=== PATIENT | male | born 1970 | race Caucasian/White ===

== ENCOUNTER 2023-11-04 19:13 | Inpatient (IN) | payer MEDICAID ==
[~2023-11-04] VITALS: Ht 167.6 cm; Wt 87.5 kg
[2023-11-04 19:30] VITALS: BP 159/81; PULSE 107; RESP 16; TEMP 99.1; O2SAT 99
[2023-11-04 19:58] LABS: BASOPHILS % (AUTO) 0.1 % (0.0-2.0); EOSINOPHILS # (AUTO) 0.2 K/uL (0-0.4); EOSINOPHILS % (AUTO) 0.9 % (0.0-4.0); HEMATOCRIT 35.4 % (36-52); HEMOGLOBIN 12.3 g/dL (12.0-18.0); LYMPHOCYTES % (AUTO) 9.8 % (20.5-51.1); MEAN CORPUSCULAR HEMOGLOBIN 33 pg (27-31); MEAN CORPUSCULAR HGB CONC 35 g/dL (33-37); MEAN CORPUSCULAR VOLUME 95.2 fL (80-94); MONOCYTES # (AUTO) 1.6 K/uL (0.8-1.0); MONOCYTES % (AUTO) 8.1 % (1.7-9.3); NEUTROPHILS # (AUTO) 16.1 K/uL (1.8-7.7); NEUTROPHILS % (AUTO) 81.1 % (42.2-75.2); PLATELET COUNT (AUTO) 422 K/uL (140-450); RED BLOOD CELL COUNT(AUTO) 3.72 MIL/uL (4.20-6.10); RED CELL DISTRIBUTION WIDTH 13.1 % (11.6-13.7); WHITE BLOOD COUNT (AUTO) 19.9 K/uL (4.8-10.8)
[2023-11-04 20:17] LABS: BILIRUBIN,URINE NEGATIVE (NEGATIVE); BLOOD, URINE 2+ (NEGATIVE); COLOR,URINE YELLOW (YELLOW); LEUKOCYTE ESTERASE ,URINE NEGATIVE (NEGATIVE); NITRITE, URINE NEGATIVE (NEGATIVE); PROTEIN,URINE 2+ (NEGATIVE); UGLUCOSE 1+ (NEGATIVE); UROBILINOGEN,URINE 0.2 EU/dL (0.2 - 1)
[2023-11-04 20:18] LABS: ANION GAP 12.1 (8-16); CALCIUM 8.1 mg/dL (8.5-10.1); CARBON DIOXIDE 24.3 mmol/L (21-32); CREATININE 1.4 mg/dL (0.6-1.3); POTASSIUM 4.4 mmol/L (3.5-5.1)
[2023-11-04 20:18] LABS: APPEARANCE,URINE SLIGHTLY HAZY (CLEAR)
[2023-11-04 20:20] LABS: BACTERIA,URINE 1+ /HPF (None Seen); MUCUS,URINE None Seen /LPF (None Seen); SQUAMOUS EPITHELIAL CELL,UR 4-10 (MOD) /LPF (0-3 (FEW)); WBC,URINE 0-5 /HPF (0-5)
[2023-11-04] MEDS: VANCOMYCIN 1,000 MG in DEXTROSE 5% 250 ML IV ONE (20:20)
[2023-11-04 20:21] LABS: INR 0.92 (0.8-1.2); PARTIAL THROMBOPLASTIN TIME 29.9 secs (22-35.6); PROTHROMBIN TIME 9.7 secs (10.8-13.4)
[2023-11-04] MEDS: metroNIDAZOLE 500 MG/NS PREMIX 100 ML IV ONE (20:22)
[2023-11-04 20:28] LABS: ALANINE AMINOTRANSFERASE 37 U/L (12-78); ALBUMIN 1.7 g/dL (3.4-5.0); ALKALINE PHOSPHATASE 293 U/L (50-136); ASPARTATE AMINOTRANSFERASE 53 U/L (15-37); BILIRUBIN,DIRECT 0.2 mg/dL (0.0-0.3); CREATINE KINASE, TOTAL 25 U/L (39-308); LACTIC ACID 1.6 mmol/L (0.4-2.0); TOTAL BILIRUBIN 0.4 mg/dL (0.0-1.0); TOTAL PROTEIN, SERUM 8.9 g/dL (6.4-8.2)
[2023-11-04] MEDS ORDERED: CEFEPIME 2,000 MG VIAL IV ONE (20:35)
[2023-11-04] MEDS: NACL 0.9% 2,000 ML IV ONE (20:50)
[2023-11-04] MEDS ORDERED: ATOR40TA PO (20:55)
[2023-11-04] MEDS ORDERED: METF-1139 PO (20:55)
[2023-11-04] MEDS ORDERED: PIOG45TA10 PO (20:55)
[2023-11-04] MEDS ORDERED: AMOX-999 PO (20:55)
[2023-11-04] MEDS ORDERED: CLIN300C2 PO (20:55)
[2023-11-04] MEDS: CEFEPIME 2,000 MG in DEXTROSE 5% 100 ML IV ONE (21:25)
[2023-11-04] MEDS ORDERED: VANCOMYCIN 1,000 MG VIAL ONE (21:49)
[2023-11-04] MEDS: MORPHINE SULFATE 4 MG/ML SYR IVP ONE (22:01)
[2023-11-04] MEDS ORDERED: ONDANSETRON 4 MG/2 ML VIAL IVP PRN (22:10)
[2023-11-04] MEDS ORDERED: DEXTROSE 50% 50 ML SYR IVP PRN (22:10)
[2023-11-04] MEDS: VANCOMYCIN 1GM/DEXT 5% PREMIX 200 ML IV ONE (22:50)
[2023-11-04 23:00] VITALS: PULSE 101; RESP 18; O2SAT 98
[2023-11-04] MEDS: NACL 0.9% 1,000 ML IV SCH (23:51)
[2023-11-04] MEDS: hydrALAZINE 20 MG/ML VIAL IVP PRN (23:52)
[2023-11-05 04:00] VITALS: BP 159/74; PULSE 90; RESP 18; TEMP 98.1; O2SAT 97
[2023-11-05] MEDS: CLINDAMYCIN 900 MG in DEXTROSE 5% 100 ML IV SCH (04:26)
[2023-11-05] MEDS: CLINDAMYCIN 900 MG/6 ML VIAL IV ONE (04:29)
[2023-11-05 05:48] LABS: ALBUMIN 1.4 g/dL (3.4-5.0); CALCIUM 7.3 mg/dL (8.5-10.1); TOTAL BILIRUBIN 0.4 mg/dL (0.0-1.0); TOTAL PROTEIN, SERUM 7.4 g/dL (6.4-8.2)
[2023-11-05] MEDS: BLOOD GLUCOSE MONITORING 1 DEV DEV FS SCH (06:33)
[2023-11-05] MEDS: INSULIN LISPRO SLIDING SCALE 100 UNITS/ML VIAL SUBQ PRN (06:36)
[2023-11-05 07:38] LABS: HEMATOCRIT 32.1 % (36-52); HEMOGLOBIN 10.9 g/dL (12.0-18.0); MEAN CORPUSCULAR HEMOGLOBIN 33 pg (27-31); MEAN CORPUSCULAR HGB CONC 34 g/dL (33-37); PLATELET COUNT (AUTO) 352 K/uL (140-450); RED BLOOD CELL COUNT(AUTO) 3.31 MIL/uL (4.20-6.10); RED CELL DISTRIBUTION WIDTH 13.4 % (11.6-13.7); WHITE BLOOD COUNT (AUTO) 18.8 K/uL (4.8-10.8)
[2023-11-05 08:00] VITALS: BP 165/81; PULSE 83; PULSE 84; PULSE 91; PULSE 97; RESP 17; RESP 18; TEMP 98.1; O2SAT 97; O2SAT 98
[2023-11-05 08:05] LABS: BASOPHILS % (MANUAL) 0 % (0-2); BLASTS, MANUAL % 0 % (0-0); EOSINOPHILS % (MANUAL) 0 % (0-4); LYMPHOCYTES % (MANUAL) 8 % (20-46); METAMYELOCYTES % 0 % (0-0); MONOCYTES % (MANUAL) 7 % (5-12); MYELOCYTES % 0 % (0-0); OTHER CELLS,MANUAL % 0 (0-0); PLASMA CELLS 0; PLATELET ESTIMATE ADEQUATE; PROMYELOCYTES % 0 % (0-0); SMUDGE CELLS 0
[2023-11-05] MEDS ORDERED: VANCOMYCIN PER PHARMACY MC PRN (09:00)
[2023-11-05] MEDS: CEFEPIME 1,000 MG in DEXTROSE 5% 50 ML IV SCH (09:56)
[2023-11-05] MEDS: VANCOMYCIN 1,000 MG in NACL 0.9% 250 ML IV SCH (09:56)
[2023-11-05] MEDS: PANTOPRAZOLE 40 MG INJ VIAL IVP SCH (09:56)
[2023-11-05] MEDS: DOCUSATE SODIUM 100 MG GELCAP PO SCH (09:56)
[2023-11-05] MEDS: ATORVASTATIN 20 MG TAB PO SCH (09:56)
[2023-11-05 12:00] VITALS: BP 155/84; PULSE 84; PULSE 89; RESP 17; TEMP 97.8; O2SAT 97
[2023-11-05] MEDS: GAUZE TP SCH (13:39)
[2023-11-05] MEDS: HYDROcodone/APAP 5/325 MG 1 TAB TAB PO PRN (13:39)
[2023-11-05 16:00] VITALS: BP 162/80; PULSE 92; RESP 17; TEMP 98.4; O2SAT 97
[2023-11-05 20:00] VITALS: BP 175/84; PULSE 68; RESP 18; TEMP 98.6; O2SAT 99
[2023-11-05] MEDS: INSULIN LANTUS 100 UNITS/ML 10 ML VIAL SUBQ SCH (20:51)
[2023-11-06 04:00] VITALS: BP 167/88; PULSE 98; RESP 18; TEMP 97.3; O2SAT 97
[2023-11-06 08:00] VITALS: BP 167/84; PULSE 93; RESP 16; RESP 18; TEMP 98.7; O2SAT 98
[2023-11-06 08:54] LABS: BASOPHILS # (AUTO) 0.1 K/uL (0.00-0.22); BASOPHILS % (AUTO) 0.4 % (0.0-2.0); EOSINOPHILS # (AUTO) 0.3 K/uL (0-0.4); EOSINOPHILS % (AUTO) 1.4 % (0.0-4.0); HEMATOCRIT 31.3 % (36-52); HEMOGLOBIN 10.8 g/dL (12.0-18.0); LYMPHOCYTES # (AUTO) 1.6 K/uL (2.0-11.5); LYMPHOCYTES % (AUTO) 8.1 % (20.5-51.1); MEAN CORPUSCULAR HEMOGLOBIN 33 pg (27-31); MEAN CORPUSCULAR HGB CONC 35 g/dL (33-37); MEAN CORPUSCULAR VOLUME 96.2 fL (80-94); MONOCYTES # (AUTO) 1.3 K/uL (0.8-1.0); MONOCYTES % (AUTO) 6.8 % (1.7-9.3); NEUTROPHILS # (AUTO) 15.9 K/uL (1.8-7.7); NEUTROPHILS % (AUTO) 83.3 % (42.2-75.2); PLATELET COUNT (AUTO) 354 K/uL (140-450); RED BLOOD CELL COUNT(AUTO) 3.26 MIL/uL (4.20-6.10); RED CELL DISTRIBUTION WIDTH 12.7 % (11.6-13.7); WHITE BLOOD COUNT (AUTO) 19.1 K/uL (4.8-10.8)
[2023-11-06 09:07] LABS: ALBUMIN 1.4 g/dL (3.4-5.0); ANION GAP 9.1 (8-16); CALCIUM 7.3 mg/dL (8.5-10.1); CARBON DIOXIDE 24.5 mmol/L (21-32); POTASSIUM 3.6 mmol/L (3.5-5.1); TOTAL BILIRUBIN 0.5 mg/dL (0.0-1.0); TOTAL PROTEIN, SERUM 7.9 g/dL (6.4-8.2)
[2023-11-06] MEDS: VANCOMYCIN 1.25GM PREMIX 250 ML IV SCH (11:47)
[2023-11-06] MEDS: LOSARTAN 50 MG TAB PO SCH (11:59)
[2023-11-06 16:00] VITALS: BP 158/79; PULSE 93; RESP 18; TEMP 98.7; O2SAT 98
[2023-11-06] MEDS: PIPERACILLIN/TAZOBACTAM 3.375 GM in DEXTROSE 5% 50 ML IV SCH (18:54)
[2023-11-06] MEDS: PIPERACILLIN/TAZOBACTAM 3.375 GM VIAL IV ONE (18:54)
[2023-11-06 20:00] VITALS: BP 142/78; PULSE 78; PULSE 86; RESP 16; RESP 18; TEMP 98.2; O2SAT 98
[2023-11-06] MEDS: ZOLPIDEM 5 MG TAB PO PRN (20:56)
[2023-11-06] MEDS: LORazepam 1 MG TAB PO PRN (20:57)
[2023-11-07] VITALS: BP 137/80; PULSE 72; RESP 16; TEMP 98; O2SAT 98
[2023-11-07] MEDS: PIPERACILLIN/TAZOBACTAM 3.375 GM VIAL IV ONE ×2 (01:03→05:25)
[2023-11-07 04:00] VITALS: BP 143/76; PULSE 75; RESP 16; TEMP 98.1; O2SAT 98
[2023-11-07 06:08] LABS: BASOPHILS % (AUTO) 0.2 % (0.0-2.0); EOSINOPHILS # (AUTO) 0.4 K/uL (0-0.4); HEMATOCRIT 30.9 % (36-52); HEMOGLOBIN 10.7 g/dL (12.0-18.0); LYMPHOCYTES # (AUTO) 1.5 K/uL (2.0-11.5); MEAN CORPUSCULAR HEMOGLOBIN 33 pg (27-31); MEAN CORPUSCULAR HGB CONC 35 g/dL (33-37); MEAN CORPUSCULAR VOLUME 95.6 fL (80-94); MONOCYTES # (AUTO) 1.2 K/uL (0.8-1.0); MONOCYTES % (AUTO) 6.4 % (1.7-9.3); NEUTROPHILS # (AUTO) 15.3 K/uL (1.8-7.7); NEUTROPHILS % (AUTO) 83.4 % (42.2-75.2); PLATELET COUNT (AUTO) 357 K/uL (140-450); RED BLOOD CELL COUNT(AUTO) 3.23 MIL/uL (4.20-6.10); RED CELL DISTRIBUTION WIDTH 13.1 % (11.6-13.7); WHITE BLOOD COUNT (AUTO) 18.4 K/uL (4.8-10.8)
[2023-11-07 06:40] LABS: ALBUMIN 1.4 g/dL (3.4-5.0); ANION GAP 12.7 (8-16); CALCIUM 7.2 mg/dL (8.5-10.1); CARBON DIOXIDE 21.9 mmol/L (21-32); POTASSIUM 3.6 mmol/L (3.5-5.1); TOTAL BILIRUBIN 0.6 mg/dL (0.0-1.0); TOTAL PROTEIN, SERUM 7.6 g/dL (6.4-8.2)
[2023-11-07 08:00] VITALS: BP 158/78; PULSE 84; RESP 20; TEMP 98.2; O2SAT 98
[2023-11-07 11:36] VITALS: PULSE 84; RESP 20; O2SAT 98
[2023-11-07 16:00] VITALS: BP 157/75; PULSE 84; RESP 20; TEMP 99.1; O2SAT 100
[2023-11-07 20:00] VITALS: BP 138/72; PULSE 79; PULSE 84; RESP 20; TEMP 99.5; O2SAT 98
[2023-11-07] MEDS: INSULIN LANTUS 100 UNITS/ML 10 ML VIAL SUBQ SCH (21:25)
[2023-11-08 04:00] VITALS: BP 142/76; PULSE 80; RESP 20; TEMP 99; O2SAT 98
[2023-11-08 06:51] LABS: BASOPHILS % (AUTO) 0.3 % (0.0-2.0); EOSINOPHILS # (AUTO) 0.4 K/uL (0-0.4); EOSINOPHILS % (AUTO) 2.7 % (0.0-4.0); HEMATOCRIT 28.2 % (36-52); LYMPHOCYTES # (AUTO) 1.5 K/uL (2.0-11.5); LYMPHOCYTES % (AUTO) 9.7 % (20.5-51.1); MEAN CORPUSCULAR HEMOGLOBIN 33 pg (27-31); MEAN CORPUSCULAR HGB CONC 35 g/dL (33-37); MONOCYTES # (AUTO) 1.1 K/uL (0.8-1.0); MONOCYTES % (AUTO) 7.2 % (1.7-9.3); NEUTROPHILS # (AUTO) 12.2 K/uL (1.8-7.7); NEUTROPHILS % (AUTO) 80.1 % (42.2-75.2); PLATELET COUNT (AUTO) 382 K/uL (140-450); RED CELL DISTRIBUTION WIDTH 12.6 % (11.6-13.7); WHITE BLOOD COUNT (AUTO) 15.2 K/uL (4.8-10.8)
[2023-11-08 07:35] LABS: ALBUMIN 1.3 g/dL (3.4-5.0); ANION GAP 11.7 (8-16); CARBON DIOXIDE 21.7 mmol/L (21-32); POTASSIUM 3.4 mmol/L (3.5-5.1); TOTAL BILIRUBIN 0.5 mg/dL (0.0-1.0); TOTAL PROTEIN, SERUM 7.2 g/dL (6.4-8.2)
[2023-11-08 08:00] VITALS: BP 147/72; PULSE 88; RESP 18; RESP 20; TEMP 98.3; O2SAT 98
[2023-11-08 16:00] VITALS: BP 136/68; PULSE 79; RESP 20; TEMP 98.3; O2SAT 97
[2023-11-08 20:00] VITALS: BP 122/59; PULSE 82; RESP 20; TEMP 98.7; O2SAT 95
[2023-11-08] MEDS: POTASSIUM CHLORIDE 10 MEQ TABER PO PRN (21:03)
[2023-11-08] MEDS: VANCOMYCIN 1,000 MG VIAL ONE (23:08)
[2023-11-08] MEDS: VANCOMYCIN 500 MG VIAL ONE (23:08)
[2023-11-09 04:00] VITALS: BP 154/73; PULSE 89; RESP 19; TEMP 97.5; O2SAT 96
[2023-11-09 07:07] LABS: BASOPHILS % (AUTO) 0.3 % (0.0-2.0); EOSINOPHILS # (AUTO) 0.4 K/uL (0-0.4); EOSINOPHILS % (AUTO) 3.3 % (0.0-4.0); HEMATOCRIT 27.7 % (36-52); LYMPHOCYTES # (AUTO) 1.5 K/uL (2.0-11.5); LYMPHOCYTES % (AUTO) 11.2 % (20.5-51.1); MEAN CORPUSCULAR HEMOGLOBIN 34 pg (27-31); MEAN CORPUSCULAR HGB CONC 36 g/dL (33-37); MEAN CORPUSCULAR VOLUME 93.8 fL (80-94); MONOCYTES # (AUTO) 1.1 K/uL (0.8-1.0); MONOCYTES % (AUTO) 8.4 % (1.7-9.3); NEUTROPHILS # (AUTO) 10.3 K/uL (1.8-7.7); NEUTROPHILS % (AUTO) 76.8 % (42.2-75.2); PLATELET COUNT (AUTO) 435 K/uL (140-450); RED BLOOD CELL COUNT(AUTO) 2.96 MIL/uL (4.20-6.10); RED CELL DISTRIBUTION WIDTH 12.7 % (11.6-13.7); WHITE BLOOD COUNT (AUTO) 13.4 K/uL (4.8-10.8)
[2023-11-09 07:15] LABS: ALBUMIN 1.3 g/dL (3.4-5.0); ANION GAP 10.8 (8-16); CALCIUM 7.2 mg/dL (8.5-10.1); CARBON DIOXIDE 21.8 mmol/L (21-32); CREATININE 1.1 mg/dL (0.6-1.3); POTASSIUM 3.6 mmol/L (3.5-5.1); TOTAL BILIRUBIN 0.6 mg/dL (0.0-1.0); TOTAL PROTEIN, SERUM 7.6 g/dL (6.4-8.2)
[2023-11-09 08:00] VITALS: PULSE 82; RESP 20; O2SAT 99
[2023-11-09 16:00] VITALS: BP 121/81; PULSE 89; RESP 19; TEMP 98.2; O2SAT 98
[2023-11-09 20:00] VITALS: PULSE 88; PULSE 89; RESP 16; O2SAT 98
[2023-11-10] MEDS: AMPICILLIN/SULBACTAM 3 GM VIAL ONE (00:24)
[2023-11-10] MEDS: AMPICILLIN/SULBACTAM 3 GM in NACL 0.9% 100 ML IV SCH (00:24)
[2023-11-10] MEDS: CLINDAMYCIN 600 MG/4 ML VIAL ONE (00:40)
[2023-11-10] MEDS: CLINDAMYCIN 600 MG in DEXTROSE 5% 50 ML IV SCH (00:43)
[2023-11-10 07:06] LABS: BASOPHILS % (AUTO) 0.2 % (0.0-2.0); EOSINOPHILS # (AUTO) 0.4 K/uL (0-0.4); EOSINOPHILS % (AUTO) 3.6 % (0.0-4.0); HEMATOCRIT 28.5 % (36-52); LYMPHOCYTES # (AUTO) 1.1 K/uL (2.0-11.5); LYMPHOCYTES % (AUTO) 10.6 % (20.5-51.1); MEAN CORPUSCULAR HEMOGLOBIN 33 pg (27-31); MEAN CORPUSCULAR HGB CONC 35 g/dL (33-37); MEAN CORPUSCULAR VOLUME 94.9 fL (80-94); MONOCYTES % (AUTO) 9.1 % (1.7-9.3); NEUTROPHILS # (AUTO) 8.2 K/uL (1.8-7.7); NEUTROPHILS % (AUTO) 76.5 % (42.2-75.2); PLATELET COUNT (AUTO) 488 K/uL (140-450); RED BLOOD CELL COUNT(AUTO) 3.01 MIL/uL (4.20-6.10); RED CELL DISTRIBUTION WIDTH 12.8 % (11.6-13.7); WHITE BLOOD COUNT (AUTO) 10.7 K/uL (4.8-10.8)
[2023-11-10 08:00] VITALS: PULSE 82; PULSE 87; RESP 20; O2SAT 100
[2023-11-10 08:16] LABS: ALBUMIN 1.4 g/dL (3.4-5.0); ANION GAP 10.5 (8-16); CALCIUM 7.4 mg/dL (8.5-10.1); CARBON DIOXIDE 24.1 mmol/L (21-32); POTASSIUM 3.6 mmol/L (3.5-5.1); TOTAL BILIRUBIN 0.5 mg/dL (0.0-1.0)
[2023-11-10] MEDS: CLINDAMYCIN 600MG/D5W PM 50 ML IV SCH (15:15)
[2023-11-10 20:00] VITALS: PULSE 91; PULSE 98; RESP 18; O2SAT 94
[2023-11-11 06:59] LABS: BASOPHILS # (AUTO) 0.1 K/uL (0.00-0.22); BASOPHILS % (AUTO) 0.5 % (0.0-2.0); EOSINOPHILS # (AUTO) 0.5 K/uL (0-0.4); EOSINOPHILS % (AUTO) 4.2 % (0.0-4.0); HEMATOCRIT 27.2 % (36-52); HEMOGLOBIN 9.6 g/dL (12.0-18.0); LYMPHOCYTES # (AUTO) 1.6 K/uL (2.0-11.5); LYMPHOCYTES % (AUTO) 14.9 % (20.5-51.1); MEAN CORPUSCULAR HEMOGLOBIN 33 pg (27-31); MEAN CORPUSCULAR HGB CONC 35 g/dL (33-37); MONOCYTES # (AUTO) 1.2 K/uL (0.8-1.0); MONOCYTES % (AUTO) 11.1 % (1.7-9.3); NEUTROPHILS # (AUTO) 7.6 K/uL (1.8-7.7); NEUTROPHILS % (AUTO) 69.3 % (42.2-75.2); PLATELET COUNT (AUTO) 552 K/uL (140-450); RED CELL DISTRIBUTION WIDTH 12.5 % (11.6-13.7); WHITE BLOOD COUNT (AUTO) 10.9 K/uL (4.8-10.8)
[2023-11-11 07:24] LABS: ALBUMIN 1.4 g/dL (3.4-5.0); ANION GAP 9.4 (8-16); CALCIUM 7.3 mg/dL (8.5-10.1); CARBON DIOXIDE 24.8 mmol/L (21-32); POTASSIUM 3.2 mmol/L (3.5-5.1); TOTAL BILIRUBIN 0.4 mg/dL (0.0-1.0); TOTAL PROTEIN, SERUM 7.8 g/dL (6.4-8.2)
[2023-11-11 08:00] VITALS: BP 167/77; PULSE 82; RESP 18; TEMP 97.6; O2SAT 94
[2023-11-11 15:38] VITALS: O2SAT 98
[2023-11-11 16:16] VITALS: BP 159/78; PULSE 77; RESP 20; TEMP 98; O2SAT 98
[2023-11-11 20:00] VITALS: PULSE 86; RESP 18; O2SAT 94
[2023-11-12 06:54] LABS: BASOPHILS % (AUTO) 0.4 % (0.0-2.0); EOSINOPHILS # (AUTO) 0.4 K/uL (0-0.4); EOSINOPHILS % (AUTO) 4.4 % (0.0-4.0); HEMATOCRIT 26.4 % (36-52); HEMOGLOBIN 9.5 g/dL (12.0-18.0); LYMPHOCYTES # (AUTO) 1.2 K/uL (2.0-11.5); LYMPHOCYTES % (AUTO) 13.5 % (20.5-51.1); MEAN CORPUSCULAR HEMOGLOBIN 34 pg (27-31); MEAN CORPUSCULAR HGB CONC 36 g/dL (33-37); MEAN CORPUSCULAR VOLUME 93.7 fL (80-94); MONOCYTES # (AUTO) 0.9 K/uL (0.8-1.0); MONOCYTES % (AUTO) 9.9 % (1.7-9.3); NEUTROPHILS # (AUTO) 6.2 K/uL (1.8-7.7); NEUTROPHILS % (AUTO) 71.8 % (42.2-75.2); PLATELET COUNT (AUTO) 592 K/uL (140-450); RED BLOOD CELL COUNT(AUTO) 2.82 MIL/uL (4.20-6.10); RED CELL DISTRIBUTION WIDTH 12.8 % (11.6-13.7); WHITE BLOOD COUNT (AUTO) 8.7 K/uL (4.8-10.8)
[2023-11-12 07:03] LABS: ALBUMIN 1.4 g/dL (3.4-5.0); ANION GAP 9.2 (8-16); CALCIUM 7.4 mg/dL (8.5-10.1); CARBON DIOXIDE 27.2 mmol/L (21-32); CREATININE 0.9 mg/dL (0.6-1.3); POTASSIUM 3.4 mmol/L (3.5-5.1); TOTAL BILIRUBIN 0.4 mg/dL (0.0-1.0); TOTAL PROTEIN, SERUM 7.8 g/dL (6.4-8.2)
[2023-11-12 08:00] VITALS: PULSE 87; RESP 18; O2SAT 94
[2023-11-12] MEDS ORDERED: AMOX1TAB8 PO (10:29)
[2023-11-12] MEDS ORDERED: LEVO-481 PO (10:29)
[2023-11-12] MEDS ORDERED: ACET-8905 PO (11:13)
[2023-11-12] MEDS ORDERED: INSU100S22 SUBQ (11:13)
[2023-11-12 12:42] VITALS: BP 112/68; PULSE 79; RESP 19; TEMP 97.8
[2023-11-12 16:50] VITALS: O2SAT 98
== END 2023-11-12 19:06 | disposition home or self-care (01) | DRG 720 ==
LOC: MED 19:13 → MTU 22:13
PROVIDERS: ADMIT Student in an Organized Health Care Education/Training Program; ATTEND Student in an Organized Health Care Education/Training Program
DX: A41.9 Sepsis, unspecified organism (principal); N17.0 Acute kidney failure with tubular necrosis; E43 Unspecified severe protein-calorie malnutrition; E11.52 Type 2 diabetes mellitus with diabetic peripheral angiopathy with gangrene; E87.1 Hypo-osmolality and hyponatremia; E11.69 Type 2 diabetes mellitus with other specified complication; F10.10 Alcohol abuse, uncomplicated; I10 Essential (primary) hypertension; L03.116 Cellulitis of left lower limb; M86.8X7 Other osteomyelitis, ankle and foot; Z79.899 Other long term (current) drug therapy; Z68.31 Body mass index [BMI] 31.0-31.9, adult
CPT/HCPCS: 36415; 71045; 73610; 73630; 80048; 80053; 80076; 80202; 81001; 82550; 82948; 83036; 83605; 83880; 84484; 85025; 85610; 85730; 87040; 87070; 87075; 87081; 87086; 96365; 96375; 99285; C9113; J0295; J0360; J0692; J1644; J1815; J2270; J2543; J3370; J3372; J3490; J7030; J7060; Q0092